=== PATIENT | male | born 2000 | race Caucasian/White ===

== ENCOUNTER 2019-11-01 11:18 | Emergency (ER) | payer SELFPAY ==
[2019-11-01 11:20] VITALS: BP 141/81; PULSE 117; RESP 17; TEMP 36.7; O2SAT 98
--- NOTE | 2019-11-01 12:38 | ED.GENADULT ---
HPI - General Adult General Chief complaint: Dental/Oral <Urbano Terry PA-C - Last Filed: 11/01/19 12:42> Stated complaint: abcess to gums <Urbano Terry PA-C - Last Filed: 11/01/19 12:42> Time Seen by Provider: 11/01/19 11:40 <Urbano Terry PA-C - Last Filed: 11/01/19 12:42> Source: patient <Urbano Terry PA-C - Last Filed: 11/01/19 12:42> Mode of arrival: ambulatory <Urbano Terry PA-C - Last Filed: 11/01/19 12:42> Limitations: no limitations <Urbano Terry PA-C - Last Filed: 11/01/19 12:42> History of Present Illness HPI narrative: Patient is a 19-year-old male who presents with left upper dental pain that is been present for the last couple of days history of decay noting aching pain to the left upper incisor with some swelling of the gum denies any fever vomiting or URI symptoms presents in no distress is new to the area and does not have a dentist <Urbano Terry PA-C - Last Filed: 11/01/19 12:42> Related Data Allergies/adverse reactions: Allergies Allergy/AdvReac Type Severity Reaction Status Date / Time No Known Allergies Allergy Verified 11/01/19 11:26 <Urbano Terry PA-C - Last Filed: 11/01/19 12:42> Review of Systems Review of Systems: All systems reviewed & are unremarkable except as noted in HPI and below <Urbano Terry PA-C - Last Filed: 11/01/19 12:42> PMFSH Social History Social History: Social History (Updated 11/01/19 @ 12:39 by Urbano Terry PA-C) Smoking status: Current every day smoker Gender identity (if verbalized by the patient): Male <MAAME Todd Last Filed: 11/01/19 12:42> Exam Narrative: Exam Narrative: GENERAL: Well-appearing, well-nourished, and in no acute distress. HEAD: Normocephalic, atraumatic. EYES: PERRLA and EOMI. ENT: Nares clear, no rhinorrhea or epistaxis. Mucous membranes moist. Oropharynx without tonsillar hypertrophy exudate or other lesions. Tenderness of the left upper incisor with Samina floor the mouth is soft uvula midline no trismus or drooling NECK: Supple. No adenopathy or masses. SKIN: Warm, dry, no rash. NEURO: Cranial nerves II through XII grossly intact. alert and oriented x3. PSYCH: Normal mood and affect. <Urbano Terry PA-C - Last Filed: 11/01/19 12:42> Course Course Emergency Course: Patient in the room in no distress aware of case findings treatment plan and diagnosis agreeing to follow-up as directed or to return if symptoms worsen or concerns <Urbano Terry PA-C - Last Filed: 11/01/19 12:42> Vital Signs Vital signs: Vital Signs Temperature 98.1 F 11/01/19 11:20 Pulse Rate 117 H 11/01/19 11:20 Respiratory Rate 17 11/01/19 11:20 Blood Pressure 141/81 H 11/01/19 11:20 Pulse Oximetry 98 11/01/19 11:20 Temperature 98.1 F 11/01/19 11:20 Pulse Rate 105 H 11/01/19 12:50 Respiratory Rate 12 11/01/19 12:50 Blood Pressure 144/71 H 11/01/19 12:50 Pulse Oximetry 99 11/01/19 12:50 <Urbano Terry PA-C - Last Filed: 11/01/19 12:42> Vital Signs Temperature 98.1 F 11/01/19 11:20 Pulse Rate 117 H 11/01/19 11:20 Respiratory Rate 17 11/01/19 11:20 Blood Pressure 141/81 H 11/01/19 11:20 Pulse Oximetry 98 11/01/19 11:20 Temperature 98.1 F 11/01/19 11:20 Pulse Rate 105 H 11/01/19 12:50 Respiratory Rate 12 11/01/19 12:50 Blood Pressure 144/71 H 11/01/19 12:50 Pulse Oximetry 99 11/01/19 12:50 <Stella Simms MD - Last Filed: 11/01/19 14:20> Medical Decision Making MDM Narrative Medical decision making narrative: Patients pain and complaint coupled with physical findings are consistent with dentalgia. There are no focal signs of space occupying lesions that are compromising to the airway. The floor of the mouth is soft with no signs of Wander Angina. Patient is without trismus or drooling and able to swallow secretions. Patient is felt appropriate f
[2019-11-01 12:50] VITALS: BP 144/71; PULSE 105; RESP 12; O2SAT 99
== END 2019-11-01 12:50 | disposition home or self-care (01) ==
PROVIDERS: Emergency Provider Emergency Medicine
DX: K04.7 Periapical abscess without sinus (principal)
CPT/HCPCS: 99283

== ENCOUNTER 2020-12-04 15:49 | Emergency (ER) | payer SELFPAY ==
[2020-12-04 15:53] VITALS: BP 131/76; PULSE 94; RESP 18; TEMP 36.4; O2SAT 100
--- NOTE | 2020-12-04 16:56 | ED.GENADULT ---
HPI - General Adult General Chief complaint: Dental/Oral Stated complaint: Abscess mouth Time Seen by Provider: 12/04/20 16:53 History of Present Illness HPI narrative: Patient is a 20-year-old gentleman who presents the emergency department with chief complaint of dental abscess. The patient states that he noticed that his gums started swelling up in his maxillary component of his mouth patient states that the area is swollen reports it is tender and it is draining pus. Patient states he has had no fevers denies trismus. Patient denies shortness of breath or chest pain Related Data Allergies Allergy/AdvReac Type Severity Reaction Status Date / Time No Known Allergies Allergy Verified 11/01/19 11:26 Review of Systems Review of Systems: A 10 system review of systems was completed on the patient and is negative except for what is stated in the HPI. Nursing and ancillary documentation was reviewed. [facility] Social History Social History Smoking status: Current every day smoker Gender identity (if verbalized by the patient): Male Exam Narrative: GENERAL: Well-appearing, well-nourished, and in no acute distress. HEAD: Normocephalic, atraumatic. EYES: PERRLA and EOMI. ENT: Nares clear, no rhinorrhea or epistaxis. Mucous membranes moist. There is a area of erythema and an open draining abscess at tooth #10 NECK: Supple. CHEST: Clear to auscultation. No respiratory distress. HEART: Regular rate and rhythm. No murmur heard. Normal peripheral pulses. ABDOMEN: Soft, nontender, nondistended, normal active bowel sounds. EXTREMITIES: Normal range of motion. No edema. SKIN: Warm, dry, no rash. NEURO: No focal deficits. Alert and oriented x3. PSYCH: Normal mood and affect. Course Vital Signs Vital signs: Vital Signs Temperature 36.4 C 12/04/20 15:53 Pulse Rate 94 12/04/20 15:53 Respiratory Rate 18 12/04/20 15:53 Blood Pressure 131/76 12/04/20 15:53 Pulse Oximetry 100 12/04/20 15:53 Temperature 36.4 C 12/04/20 15:53 Pulse Rate 94 12/04/20 15:53 Respiratory Rate 18 12/04/20 15:53 Blood Pressure 131/76 12/04/20 15:53 Pulse Oximetry 100 12/04/20 15:53 Medical Decision Making Vital Signs Vital Signs: Vital Signs Temperature 36.4 C 12/04/20 15:53 Pulse Rate 94 12/04/20 15:53 Respiratory Rate 18 12/04/20 15:53 Blood Pressure 131/76 12/04/20 15:53 Pulse Oximetry 100 12/04/20 15:53 Temperature 36.4 C 12/04/20 15:53 Pulse Rate 94 12/04/20 15:53 Respiratory Rate 18 12/04/20 15:53 Blood Pressure 131/76 12/04/20 15:53 Pulse Oximetry 100 12/04/20 15:53 Discharge Plan Discharge Clinical Impression: Dental abscess Patient Disposition: Home, Self-Care Condition: Stable Instructions: Antibiotic Form, Dental Abscess (ED) Additional Instructions: Please follow-up with a dentist as soon as possible Prescriptions: New amoxicillin 500 mg capsule 500 mg PO Q12H Qty: 20 RF: 0 No Action amoxicillin 500 mg capsule 500 mg PO TID 10 Days Qty: 30 RF: 0 chlorhexidine gluconate [Peridex] 0.12 % mouthwash 15 ml MUCOUS MEM BID Qty: 1500 RF: 0 ibuprofen [IBU] 600 mg tablet 600 mg PO QID PRN (Reason: fever or pain) Qty: 7 RF: 0 Follow-up/Referrals: PHYSICIAN,RN ENT [Primary Care Provider] - Stand Alone Forms: Work/School Release IP Time of Disposition: 16:58
[2020-12-04] MEDS: AMOXICILLIN 500 MG CAPSULE PO (17:09)
== END 2020-12-04 17:13 | disposition home or self-care (01) ==
PROVIDERS: Emergency Provider Emergency Medicine
DX: K04.7 Periapical abscess without sinus (principal); F17.200 Nicotine dependence, unspecified, uncomplicated
CPT/HCPCS: 99283; A9270